=== PATIENT | male | born 1945 | race Caucasian/White ===

== ENCOUNTER 2017-03-16 20:15 | Emergency (ER) | payer MEDICARE, OTHER ==
[~2017-03-16] VITALS: Ht 170.2 cm; Wt 96.4 kg
[2017-03-16 20:49] VITALS: BP 152/71; PULSE 77; RESP 20; O2SAT 94
--- NOTE | 2017-03-16 22:01 | ED.REPORT ---
HPI-Eye Problem Date of Service Mar 16, 2017 ED Provider: Benji Mcghee DO Pt is a 72 year old male with a hx of diabetic retinopathy and uncontrolled DM II presenting to the ED complaining of bleeding in his left eye. He states that he was having a BM and pushed very hard, and had sudden bright red blood in his visual field. The symptoms then gradually resolved over about 15 minutes. Denies any double vision or a headache but does report blurriness. He states that he got a piece of metal in his eye a few weeks ago, and so he has had some residual blurriness. The foreign body was successfully removed and he has been using an antibiotic for his eye. Pt takes metformin, losartan, gabapentin, and Lantus 50 units per day. He states that he is supposed to have laser eye surgery later this month. Nursing Notes Stated Complaint: BROKEN BLOOD VESSEL IN LEFT EYE Chief Complaint: Eye Nursing Notes Reviewed: Yes Allergies: Coded Allergies: No Known Allergies (Verified , 03/16/17) General Time Seen by MD: 21:53 Chief Complaint Left eye affected Hx Obtained From: Patient Arrived By: Walk-in Sudden in Onset?: Yes Onset Occurred: Just prior to arrival Symptom Duration: Since onset Progression Since Onset: Resolved Location: : Eye left Severity: Current: No pain currently Severity: Maximum: No pain Recent Healthcare: No recent doctor visit, No recent hospitalization Similar Sx Previous: No Past Medical History Past Medical History Recently diagnosed diabetic retinopathy Reports: Diabetes mellitus, Hypertension Past Surgical History denies Smoking History Unknown if Ever Smoker Ambulatory Status Independent Review of Systems Review of Systems Note: Reports left eye bleeding Eyes: Reports: Blurred left, Denies: Diplopia, Redness left Neurologic: Denies: Headache Complete sys rev & neg: except as marked. Physical Exam Initial Vital Signs Vital Signs (First) Date Time Temp Pulse Resp B/P Pulse Ox O2 Delivery O2 Flow Rate FiO2 03/16/17 20:49 37.1 77 20 152/71 94 Room Air Initial VS: Reviewed General / Const: Well-developed, Well-nourished Neck: Supple, Non-tender, Full range of motion Respiratory: Breath sounds normal, Clear to auscultation, No respiratory distress Cardiovascular: Regular rate & rhythm, Heart sounds normal, Intact distal pulses Abdomen / GI: Soft, Non-tender, No guarding, No rebound, No distention Extremities: Vascular intact, Neuro intact, No swelling, No tenderness Skin: Warm, Dry, No cyanosis Neurologic: Alert, Oriented, Nonfocal Psychiatric: Mood/affect normal, Behavior normal, Normal thought content Head / Eyes: Atraumatic, Normocephalic, PERRL, EOMI, Conjunctiva NL, Cornea clear Conjunctiva not injected. 20/40 left eye. 20/20 right. Anterior chambers flat and equal. Cornea clear bilaterally. Re-Eval/Medical Decision Re-Evaluation/Progress : Time of Eval: 22:45 Patient Status: Condition improved Re-Evaluation/Progress Note: Discussed plan for discharge. Pt understands and agrees. Consultation : Consulted With: Business Analyst [employer] (Mike López) Call Returned at: 22:28 Note: Follow up with his opthamologist tomorrow, sx likely related to retinal hemorrhage. Counseled Regarding: Diagnosis, Lab results, Need for follow-up, When/why to return to ED Discharge & Departure Primary Impression: Retinal hemorrhage Laterality: left Qualified Code: H35.62 - Retinal hemorrhage, left eye Additional Impression: Diabetic retinopathy Diabetes mellitus type: other specified (including ROCÍO) Diabetic retinopathy severity: with unspecified retinopathy severity Diabetes mellitus macular edema: macular edema presence unspecified Laterality: unspecified laterality Qualified Code: E13.319 - Other specified diabetes mellitus with unspecified diabetic retinopathy without macular edema Disposition: Home Discharge Condition All VS Reviewed: Yes Condition: Improved Additional Instructions: Thank you for trusting us with your care today. It appears that you had some bleeding at the back of your eye causing your symptoms. You should follow up with an finish opener tomorrow. I have placed the contact information for Dr. López below, or you may follow up with your finish opener. Referrals: DAVID SPAULDING MD (PCP) [facility] Jose C Attestation Portions of this note were transcribed by Velma Zaragoza. I, Dr. Mcghee personally performed the history, physical exam and medical decision-making; I reviewed and confirmed the accuracy of the information in the transcribed note. Signed by: Jose C Dos Santos, 03/16/2017. copies to: [facility]; DAVID SPAULDING MD, Gary R DO Mar 16, 2017 22:01 VELMA ZARAGOZA Mar 16, 2017 22:17
== END 2017-03-16 23:18 | disposition home or self-care (01) ==
LOC: SED 20:15
DX: H35.62 Retinal hemorrhage, left eye (principal); E13.319 Other specified diabetes mellitus with unspecified diabetic retinopathy without macular edema; I10 Essential (primary) hypertension; Z79.4 Long term (current) use of insulin; Z79.84 Long term (current) use of oral hypoglycemic drugs

== ENCOUNTER 2017-05-13 13:27 | Emergency (ER) | payer MEDICARE, OTHER ==
[~2017-05-13] VITALS: Ht 172.7 cm; Wt 96.4 kg
[2017-05-13 13:30] VITALS: BP 182/79; PULSE 63; RESP 16; O2SAT 100
--- NOTE | 2017-05-13 13:39 | ED.REPORT ---
HPI-Dyspnea / Wheezing Date of Service May 13, 2017 ED Provider: Zacarias Butterfield MD A 72 year old male with a history of IDDM and hypertension presents to the ED complaining of shortness of breath. The pt noticed difficulty breathing while getting out of bed this morning, which lasted for thirty minutes. He denies cough, fever, nausea, vomiting, palpitations or chest pain during this episode. His symptoms were relieved by walking outside and breathing cool air. The pt later did some yard work and was resting afterwards when the shortness of breath returned. He denies any history of asthma. The pt denies pain or swelling in his legs, recent surgery, history of blood clots or recent periods of immobilization. He took his blood pressure medication normally this morning. Nursing Notes Stated Complaint: HARD TO BREATHE Chief Complaint: Respiratory Complaints Nursing Notes Reviewed: Yes Allergies: Coded Allergies: No Known Allergies (Verified , 05/13/17) Scheduled Atorvastatin (Lipitor) 80 Mg Tablet 80 MG PO DAILY Chlorthalidone (Chlorthalidone) 25 Mg Tablet 25 MG PO DAILY Gabapentin (Gabapentin) 300 Mg Capsule 300 MG PO TID Insulin Glargine (Lantus U100 Insulin Vial) 100 Unit/Ml Vial 50 UNIT SUBQ HS Losartan Potassium (Losartan Potassium) 25 Mg Tablet 25 MG PO DAILY Metoprolol Tartrate (Metoprolol Tartrate) 25 Mg Tablet 25 MG PO DAILY Prednisone (PredniSONE) 20 Mg Tablet 40 MG PO DAILY Scheduled PRN Albuterol HFA (Proair HFA) 8.5 Gm Hfa.aer.ad 2 PUFFS INHALATION Q4H PRN PRN For Wheezing General Time Seen by MD: 13:34 Chief Complaint Shortness of breath Hx Obtained From: Patient Arrived By: Walk-in Sudden in Onset?: No Onset Occurred: 5 - 8 hours ago Symptom Duration: Intermittent Recent Healthcare: No recent hospitalization, Recent doctor visit Similar Sx Previous: No Risk Factors PE Risk Stratification No Immobilization, No Previous DVT, No Previous PE, No Surgery Last 60 Days Risk factors reviewed PERC Rule Age 50 or over Pretest under 15% Past Medical History Past Medical History Recently diagnosed diabetic retinopathy Heartburn Arthritis Neuropathy Reports: Diabetes mellitus, Hypertension Past Surgical History lumpectomy in Smoking History Never Smoker Ambulatory Status Independent Review of Systems Review of Systems Note: denies pain or swelling in his legs Constitutional: Denies: Chills, Fever Respiratory: Reports: Shortness of breath, Denies: Non-productive cough Cardiovascular: Denies: Chest pain, Palpitations Complete sys rev & neg: except as marked. GI: Denies: Abdominal pain, Nausea, Vomiting Physical Exam Initial Vital Signs Vital Signs (First) Date Time Temp Pulse Resp B/P Pulse Ox O2 Delivery O2 Flow Rate FiO2 05/13/17 13:30 36.7 63 16 182/79 100 Room Air Initial VS: Reviewed General/Constitutional: Awake, Alert Neck: Atraumatic, Supple, Full range of motion Respiratory / Chest: Atraumatic, Breath sounds NL, Breath sounds = bilat, No respiratory distress Cardiovascular: Heart rate NL, Regular rhythm, Heart sounds NL, No murmurs ENT: Atraumatic, Airway patent, Mucous membranes moist Abdomen: Atraumatic, Soft, Non-tender Back: Atraumatic, Full range of motion Lower Extremity / Pelvis / MS: Atraumatic, Full range of motion, No edema Skin: Atraumatic, Color NL, No rash, Warm, Dry Neurologic: Oriented X3, Speech NL, No motor deficits, No sensory deficits Head / Eyes: Atraumatic, Normocephalic, PERRL, EOMI Upper Extremity / MS: Atraumatic, Full range of motion Psychiatric: Affect NL, Mood NL Interpretation & Diagnostics Lab Results Interpretation Result Diagram: 05/13/17 1400 05/13/17 1400 Test 05/13/17 14:00 White Blood Count 6.9th/mm3 (3.8-10.1) Red Blood Count 5.39mil/mm3 (4.40-5.80) Hemoglobin 15.0g/dL (13.8-17.2) Hematocrit 42.5% (41.0-50.0) Mean Corpuscular Volume 78.8fL (81-100) Mean Corpuscular Hemoglobin 27.8pg (27.0-35.0) Mean Corpuscular Hemoglobin Concent 35.3% (32.0-37.0) Red Cell Distribution Width 13.6% (12.3-15.4) Platelet Count 203bil/L (150-400) Neutrophils (%) (Auto) 78.9% (40-74) Lymphocytes (%) (Auto) 12.0% (14-46) Monocytes (%) (Auto) 6.7% (4-12) Eosinophils (%) (Auto) 2.0% (0-5) Basophils (%) (Auto) 0.3% (0-3) Prothrombin Time 10.0sec (8.1-12.5) Prothromb Time International Ratio 0.94ratio D-Dimer < 0.50mg/L FEU (<0.50) Sodium Level 137mEq/L (134-144) Potassium Level 4.5mEq/L (3.5-5.2) Chloride Level 100mEq/L (97-108) Carbon Dioxide Level 22mmol/L (18-29) Blood Urea Nitrogen 36mg/dL (8-27) Creatinine 1.83mg/dL (0.76-1.27) Estimat Glomerular Filtration Rate 39mL/min (>59) Glucose Level 278mg/dL (60-99) Calcium Level 8.7mg/dL (8.5-10.1) Total Bilirubin 0.4mg/dL (0.0-1.2) Aspartate Amino Transf (AST/SGOT) 19U/L (0-50) Alanine Aminotransferase (ALT/SGPT) 15U/L (0-44) Alkaline Phosphatase 111U/L (25-160) Troponin T < 0.010ug/L (0.0-0.011) Pro-B-Type Natriuretic Peptide 185.1pg/mL (0-376) Total Protein 7.0g/dL (6.4-8.4) Albumin 4.1g/dL (3.4-5.0) Hold Man Top Tube Received (Received) ECG Interpretation ECG Interpretation: normal sinus rhythm with a rate of [address]/T changes Time: 13:49 Interpreted by: ED physician X-Ray Chest Interpretation Chest Xray Interpretation: IMPRESSION: Normal for age, source of shortness of breath is not seen. Dictated by: Efra Mathew M.D. on 05/13/2017 at 14:25 Approved by: Efra Mathew M.D. on 05/13/2017 at 14:25 Interpretation / Wet Read by: Interpret - Radiologist Re-Eval/Medical Decision Med Decision/Clinical Course 72-year-old male presenting with shortness of breath since this morning. It improved while walking outside. He denies any cough or other symptoms. Denied any chest pain. On arrival he reported shortness of breath was satting in the high 90s to 100% room air. Chest x-ray is clear. His d-dimer is negative. His troponins are negative. His labs are unremarkable. He felt much better after an albuterol nebulizer though he did not have any overt wheezes. Possible anxiety cannot rule out very mild asthma exacerbation. We will treat with inhaler as needed prednisone course. Return precautions given. Source of Hx: Old records Re-Evaluation/Progress #1: Time of Eval: 15:12 Patient Status: Condition improved Re-Evaluation/Progress Note: Pt rechecked, whose condition has significantly improved. Further physical examination is performed. Re-Evaluation/Progress #2: Time of Eval: 16:13 Patient Status: Condition improved Re-Evaluation/Progress Note: Pt rechecked, who is feeling well. The diagnosis and plan for discharge are discussed. The pt understands and agrees with the plan. All questions are addressed at this time. Counseled Regarding: Diagnosis, Lab results, Need for follow-up, When/why to return to ED Discharge & Departure Impression: Primary Impression: Asthma exacerbation Disposition: Home Discharge Condition All VS Reviewed: Yes Condition: Stable Patient Instructions: Asthma (ED) Additional Instructions: Thank you for entrusting us with your care. Your evaluation was reassuring. Take Prednisone once daily for five days. Use an albuterol inhaler as directed. Call your primary care physician to arrange a follow up appointment in the next several days. Return to the emergency department if you develop any new or worsening symptoms such as worsening shortness of breath, wheezing, chest pain, cough, fever, nausea or vomiting. Referrals: EFRA SPAULDING MD (PCP) Scribe Attestation Portions of this note were transcribed by Svetlana Yin. I, Dr. Butterfield personally performed the history, physical exam and medical decision-making; I reviewed and confirmed the accuracy of the information in the transcribed note. copies to: EFRA SPAULDING MD, Ben M MD May 13, 2017 13:39 SVETLANA YIN May 13, 2017 14:44
[2017-05-13] MEDS ORDERED: Albuterol 2.5 mg/3 mL Inhalation Solution NEB ONE (13:40)
[2017-05-13] MEDS ORDERED: METO25TA6 PO (13:41)
[2017-05-13] MEDS ORDERED: LOSA25TA21 PO (13:41)
[2017-05-13] MEDS ORDERED: GABA-502 PO (13:41)
[2017-05-13] MEDS ORDERED: ATOR80TA PO (13:41)
[2017-05-13] MEDS ORDERED: HYG25 PO (13:41)
[2017-05-13] MEDS ORDERED: INSU100V7 SUBQ (13:41)
[2017-05-13 14:04] VITALS: PULSE 62; RESP 13; O2SAT 97
--- NOTE | 2017-05-13 14:27 | DRSVH ---
PROCEDURE: X-RAY CHEST ONE VIEW, PORTABLE ([id number]) INDICATIONS: dyspnea TECHNIQUE: One view of the chest was acquired. COMPARISON: [facility], RG, CHEST 1VW (PORTABLE) , 11/21/2004, 15:26. FINDINGS: Surgical changes and devices: None. Lungs and pleura: No pleural effusions or pneumothorax. Lungs are clear. Mediastinum: Mediastinal contours appear normal. Heart size is normal. Bones and chest wall: No suspicious bony lesions. Overlying soft tissues appear unremarkable. IMPRESSION: Normal for age, source of shortness of breath is not seen. Dictated by: Efra Mathew M.D. on 05/13/2017 at 14:25 Approved by: Efra Mathew M.D. on 05/13/2017 at 14:25
[2017-05-13 14:53] VITALS: BP 152/58; PULSE 76; RESP 14; O2SAT 96
[2017-05-13 14:55] LABS: INR 0.94 ratio
[2017-05-13 15:00] LABS: BASOPHILS % (AUTO) 0.3 % (0-3); MONOCYTES % (AUTO) 6.7 % (4-12); Mean Corpuscular Hemoglobin 27.8 pg (27.0-35.0); Mean Corpuscular Volume 78.8 fL (81-100); NEUTROPHILS % (AUTO) 78.9 % (40-74); Platelet Count 203 bil/L (150-400)
[2017-05-13 15:21] LABS: TROPONIN T < 0.010 ug/L (0.0-0.011)
[2017-05-13] MEDS ORDERED: PRE20 PO (16:03)
[2017-05-13] MEDS ORDERED: ALBU8.5H2 INHALATION (16:03)
[2017-05-13 16:25] VITALS: BP 156/85; PULSE 79; RESP 16; O2SAT 97
== END 2017-05-13 16:27 | disposition home or self-care (01) ==
LOC: SED 13:27
DX: J45.901 Unspecified asthma with (acute) exacerbation (principal); E11.40 Type 2 diabetes mellitus with diabetic neuropathy, unspecified; E11.319 Type 2 diabetes mellitus with unspecified diabetic retinopathy without macular edema; I10 Essential (primary) hypertension; Z79.82 Long term (current) use of aspirin; Z79.4 Long term (current) use of insulin; Z79.52 Long term (current) use of systemic steroids; Z79.51 Long term (current) use of inhaled steroids
CPT/HCPCS: 36415; 71010; 80053; 83880; 84484; 85025; 85378; 85610; 93005; 94664; 94799; 99285; J7613